=== PATIENT | male | born 1940 | race Hispanic/Latino ===

== ENCOUNTER 2020-02-05 07:42 | Observation (INO) | payer OTHER ==
[~2020-02-05] VITALS: Ht 177.8 cm; Wt 82.0 kg
[2020-02-05] VITALS (20 sets, daily range): BP systolic 122–157; BP diastolic 45–80
[2020-02-05 08:17] LABS: BASOPHILS % (AUTO) 0.3 % (0.0-5.0); EOSINOPHILS % (AUTO) 2.7 % (0.0-8.0); HEMATOCRIT 44.3 % (42-54); LYMPHOCYTES % (AUTO) 1.3 % (21.0-51.0); MEAN CORPUSCULAR HEMOGLOBIN 29.8 pg (27.0-33.0); MEAN CORPUSCULAR HGB CONC 34.3 g/dL (32.0-36.0); MEAN CORPUSCULAR VOLUME 86.9 fL (79-99); MONOCYTES % (AUTO) 5.5 % (3.0-13.0); NEUTROPHILS % (AUTO) 89.8 % (40.0-77.0); PLATELET COUNT (AUTO) 134 K/uL (130-400); RED CELL DISTRIBUTION WIDTH 12.3 % (11.0-15.5); WHITE BLOOD COUNT (AUTO) 12.4 K/uL (4.8-10.8)
[2020-02-05] MEDS ORDERED: 0.9%NACL 1000ML 1,000 ML IV ONE ×2 (08:23→10:07)
[2020-02-05 08:27] LABS: CREATININE 2.1 mg/dL (0.5-1.5); INR 1.05 (0.85-1.15); POTASSIUM 4.7 mmol/L (3.5-5.1); PROTHROMBIN TIME 11.2 SEC (9.6-11.6)
[2020-02-05 08:29] LABS: PARTIAL THROMBOPLASTIN TIME 25.8 SEC (26.3-35.5)
[2020-02-05 08:31] LABS: ALBUMIN 3.9 g/dL (3.5-5.0); BILIRUBIN,TOTAL 7.6 mg/dL (0.2-1.0); TOTAL PROTEIN, SERUM 7.5 g/dL (6.0-8.3)
[2020-02-05] MEDS ORDERED: KETOROLAC 30MG VIAL (30MG/ML) ONE (09:01)
[2020-02-05] MEDS ORDERED: ONDANSETRON 4MG INJ ONE ×2 (09:01→11:56)
[2020-02-05] MEDS ORDERED: MORPHINE 4 MG SYG ONE (09:01)
[2020-02-05] MEDS ORDERED: ZOSYN 3.375GM+NS 50ML 50 ML IV ONE (10:02)
[2020-02-05] MEDS: LACTATED RINGERS 1000ML 1,000 ML IV SCH ×2 (10:45→18:13)
[2020-02-05] MEDS: ZOSYN 3.375GM+NS 50ML 50 ML IV SCH ×2 (10:45→18:13)
[2020-02-05] MEDS ORDERED: LIDOCAINE PF 100MG/5ML (2%) SYRINGE 5ML ONE (11:56)
[2020-02-05] MEDS ORDERED: SUCCINYLCHOLINE 200MG/10ML SYR ONE (11:56)
[2020-02-05] MEDS ORDERED: PROPOFOL 10 MG/ML 20ML VIAL IV ONE (11:56)
[2020-02-05] MEDS ORDERED: FENTANYL CITRATE PF 50 MCG/1 ML 2ML VIAL ONE (11:56)
[2020-02-05] MEDS ORDERED: ROCURONIUM 10MG/1ML SYR 10 MG/ML ML ONE (11:56)
[2020-02-05] MEDS ORDERED: GLUCAGON 1MG KIT 1 MG ML IM PRN (12:15)
[2020-02-05] MEDS ORDERED: DEXTROSE 50%-WATER 50 ML DISP.SYRIN IV PRN (12:15)
[2020-02-05] MEDS ORDERED: MAGNESIUM 2GM PREMIX 50ML 50 ML IV PRN (12:15)
[2020-02-05] MEDS ORDERED: INDOMETHACIN 50 MG SUPP.RECT RC SCH (12:30)
[2020-02-05] MEDS ORDERED: IOHEXOL-350 50ML VIAL IV ONE (12:35)
[2020-02-05] MEDS: INSULIN HUMULIN R 100 UNIT/ML 3ML SQ SCH ×3 (18:00→23:30)
[2020-02-06] VITALS: BP 129/72
[2020-02-06] MEDS: ZOSYN 3.375GM+NS 50ML 50 ML IV SCH ×2 (02:50→09:45)
[2020-02-06 04:00] VITALS: BP 143/62
[2020-02-06 05:35] LABS: BASOPHILS % (AUTO) 0.2 % (0.0-5.0); EOSINOPHILS % (AUTO) 0.5 % (0.0-8.0); HEMATOCRIT 34.9 % (42-54); LYMPHOCYTES % (AUTO) 7.1 % (21.0-51.0); MEAN CORPUSCULAR HEMOGLOBIN 30.2 pg (27.0-33.0); MEAN CORPUSCULAR HGB CONC 34.4 g/dL (32.0-36.0); MEAN CORPUSCULAR VOLUME 87.9 fL (79-99); MONOCYTES % (AUTO) 8.7 % (3.0-13.0); NEUTROPHILS % (AUTO) 83.2 % (40.0-77.0); PLATELET COUNT (AUTO) 103 K/uL (130-400); RED BLOOD CELL COUNT(AUTO) 3.97 MIL/uL (4.50-6.20); RED CELL DISTRIBUTION WIDTH 12.5 % (11.0-15.5); WHITE BLOOD COUNT (AUTO) 9.4 K/uL (4.8-10.8)
[2020-02-06] MEDS: INSULIN HUMULIN R 100 UNIT/ML 3ML SQ SCH ×2 (05:37→11:30)
[2020-02-06 05:59] LABS: ALBUMIN 2.6 g/dL (3.5-5.0); BILIRUBIN,DIRECT 5.9 mg/dL (0.0-0.3); BILIRUBIN,TOTAL 7.5 mg/dL (0.2-1.0); CREATININE 1.4 mg/dL (0.5-1.5); MAGNESIUM 1.7 mg/dL (1.80-2.40); PHOSPHORUS 2.4 mg/dL (2.5-4.9); POTASSIUM 4.1 mmol/L (3.5-5.1); TOTAL PROTEIN, SERUM 5.9 g/dL (6.0-8.3)
[2020-02-06 08:22] VITALS: BP 148/67
[2020-02-06] MEDS ORDERED: PANTOPRAZOLE 40 MG/VIAL IV SCH (09:00)
[2020-02-06 11:31] VITALS: BP 172/69
[2020-02-06] MEDS ORDERED: METR500T PO (14:18)
[2020-02-06] MEDS ORDERED: LEVO750T46 PO (14:18)
== END 2020-02-06 17:30 | disposition home or self-care (01) ==
LOC: EDH 07:42 → EDHIP 10:37 → 3BH 11:39
PROVIDERS: ADMIT Internal Medicine; ATTEND Internal Medicine
DX: K80.50 Calculus of bile duct without cholangitis or cholecystitis without obstruction (principal); Z20.828 Contact with and (suspected) exposure to other viral communicable diseases; R93.5 Abnormal findings on diagnostic imaging of other abdominal regions, including retroperitoneum; K83.8 Other specified diseases of biliary tract; E80.6 Other disorders of bilirubin metabolism; R74.01 Elevation of levels of liver transaminase levels; E87.2 Acidosis; I10 Essential (primary) hypertension; E03.9 Hypothyroidism, unspecified; E11.9 Type 2 diabetes mellitus without complications; Z79.899 Other long term (current) drug therapy
CPT/HCPCS: 36415 ×2; 43262; 43264; 71045 ×2; 74176; 74330; 76705; 80053 ×2; 82150; 82550; 82948 ×5; 83605 ×2; 83690; 83735; 84100; 84484; 85025 ×2; 85610; 85730; 87040 ×2; 87077; 87186; 87426; 87804 ×2; 93005; 96365; 96366 ×2; 96368; 96375; 97161 ×2; 99285; A4215; A4221; A4222; A4223; A4606; A4663; C1769; C1773; C9113; G0378 ×27; G8978 ×2; G8979 ×2; G8980 ×2; G8981 ×2; G8982 ×2; G8983 ×2; J0330; J1885; J2001; J2270; J2405 ×2; J2543 ×4; J2704; J3010; J3475; J7030 ×3; J7120; Q9967; U0003; 80076

== ENCOUNTER → 2023-01-15 | Outpatient (CLI) | payer OTHER ==
[~2023-01-15] MED LIST: LEVO750T68 PO; METR500T PO
== END | disposition home or self-care (01) ==
LOC: SHCH 10:19
PROVIDERS: ATTEND Internal Medicine Cardiovascular Disease
DX: R06.00 Dyspnea, unspecified (principal)
CPT/HCPCS: 93306

== ENCOUNTER → 2023-01-16 | Outpatient (CLI) | payer OTHER ==
[~2023-01-16] MED LIST changes: +REGADENOSON 0.4 MG/5 ML PF SYG IVP ONE
== END | disposition home or self-care (01) ==
LOC: SHCH 07:43
PROVIDERS: ATTEND Internal Medicine Cardiovascular Disease
DX: R07.9 Chest pain, unspecified (principal); R06.00 Dyspnea, unspecified
CPT/HCPCS: 78452; 93017; J2785; A9500 ×2; 96374